=== PATIENT | male | born 1990 | race African-American/Black ===

== ENCOUNTER 2018-06-28 12:38 | Emergency (ER) | payer OTHER ==
[~2018-06-28] VITALS: Ht 185.4 cm; Wt 75.8 kg
[2018-06-28] MEDS ORDERED: CLARITIN10 MG PO (12:46)
[2018-06-28 14:34] VITALS: BP 111/62
[2018-06-29] MEDS ORDERED: PROMETHAZINE-D118 ML PO (20:40)
[2018-06-29] MEDS ORDERED: PROMETHAZINE V118 M1 PO (21:05)
[2018-06-29] MEDS ORDERED: PROMETH-CODEIN 65 ML PO (21:08)
== END 2018-06-28 14:37 | disposition home or self-care (01) ==
LOC: ER 12:38
DX: J10.1 Influenza due to other identified influenza virus with other respiratory manifestations (principal); B97.89 Other viral agents as the cause of diseases classified elsewhere

== ENCOUNTER 2018-06-29 18:43 | Emergency (ER) | payer OTHER ==
[~2018-06-29] VITALS: Ht 185.4 cm; Wt 121.1 kg
[~2018-06-29 18:43] MED LIST: CLARITIN10 MG PO
[2018-06-29] MEDS ORDERED: PROMETHAZINE-D118 ML PO (20:40)
[2018-06-29] MEDS ORDERED: PROMETHAZINE V118 M1 PO (21:05)
[2018-06-29] MEDS ORDERED: PROMETH-CODEIN 65 ML PO (21:08)
[2018-06-29 21:23] VITALS: BP 130/68
== END 2018-06-29 22:02 | disposition home or self-care (01) ==
LOC: ER 18:43
DX: J10.1 Influenza due to other identified influenza virus with other respiratory manifestations (principal); B97.89 Other viral agents as the cause of diseases classified elsewhere